=== PATIENT | female | born 1950 | race Caucasian/White ===

== ENCOUNTER → 2017-06-25 | Day surgery (SDC) | payer MEDICARE ==
[~2017-06-25] VITALS: Ht 157.5 cm; Wt 57.2 kg
[~2017-06-25] MED LIST: ACETAMINOPHEN 1000 MG/100 ML 100 ML IV ONE; ACETAMINOPHEN 500 MG CPLT PO PRN; ASPI81CH6 CHEW; ATOR10TA15 PO; ATROPINE SULFATE 1% OPHT SOLN 2 ML BTL ONE; CHLORHEXIDINE GLUCONATE 2 % 1 PACK (2 CLOTHS) TOPICAL PRN; CITA10TA4 PO; DEXAMETHASONE SOD PHOS 4 MG/ML VIAL IV ONE; DEXAMETHASONE SOD PHOS 4 MG/ML VIAL ONE; DEXTROSE 50% IN WATER 50 ML SYRINGE ONE; DO NOT ADM ANY ANTICOAGULANT DRUGS PRN; EPINEPHrine HCL (1:1000) 1 MG/ML VIAL ONE; GABA400C5 PO; GLYCOPYRROLATE 1 MG/5 ML SYRINGE IV PUSH ONE; LACTATED RINGER'S 1000 ML IV PRN; LANTUS2P SQ; LEVO137T2 PO; LIDOCAINE HCL 1% PF 5 ML SYRINGE OTHER ONE; LISI10TA3 PO; MELO7.5T27 PO; METOPROLOL TARTRATE 25 MG TAB PO PRN; MIDAZOLAM HCL 2 MG/2 ML VIAL ONE; NOVO7030P2 SQ; ONDANSETRON HCL 4 MG/2 ML VIAL IV ONE; PHENYLEPH/NS 1000 MCG/10 ML SYR IV ONE; POVIDONE IODINE 5% (ANTISEPSIS KIT) 4 APPLICATIONS EACH NARE PRN; PROPOFOL 200 MG/20 ML AMP IV ONE; SODIUM CHLORID 0.9% 500 ML IV PRN; STERILE WATER FOR INJECTION 20 ML VIAL ONE; TOBRAMYCIN/DEXAMETHASONE OPTH OINT 3.5 GM TUBE ONE; TRAM50TA PO; TRIAMCINOLONE ACETONIDE/PF 40 MG/ML OPTH VIAL ONE; ceFAZolin INJ 1,000 MG VIAL ONE; oxyCODONE/ACETAMINOPHEN 5 MG/325 MG TAB PO PRN
[2017-06-25 07:41] LABS: AUTOMATED NEUTROPHIL # 2.4 TH/MM3 (1.8-7.7); BASOPHIL % 0.3 % (0.0-2.0); EOSINOPHIL # 0.2 TH/MM3 (0-0.4); EOSINOPHIL % 3.9 % (0.0-4.0); HEMATOCRIT 33.1 % (35.0-46.0); LYMPH % 32.4 % (9.0-44.0); LYMPHOCYTE # 1.5 TH/MM3 (1.0-4.8); MEAN CELL VOLUME 93.1 FL (80.0-100.0); MEAN CORPUSCULAR HGB CONC 33.3 % (32.0-36.0); MEAN PLATELET VOLUME 8.8 FL (7.0-11.0); MONO % 10.9 % (0.0-8.0); MONOCYTE # 0.5 TH/MM3 (0-0.9); NEUT % 52.5 % (16.0-70.0); PLATELET COUNT 271 TH/MM3 (150-450); RED BLOOD COUNT 3.56 MIL/MM3 (4.00-5.30); RED CELL DISTRIBUTION WIDTH 14.6 % (11.6-17.2); WHITE BLOOD COUNT 4.6 TH/MM3 (4.0-11.0)
[2017-06-25] MEDS: ATROPINE SULFATE 1% OPHT SOLN 5 ML BTL EACH EYE SCH ×3 (07:50→08:20)
[2017-06-25] MEDS: TROPICAMIDE 1% OPHT SOLN 15 ML BTL EACH EYE SCH ×3 (07:50→08:20)
[2017-06-25] MEDS: CYCLOPENTOLATE HCL 1% OPHT SOLN 2 ML BTL EACH EYE SCH ×3 (07:50→08:20)
[2017-06-25] MEDS: PHENYLEPHRINE HCL 2.5% OPTH SOLN 2 ML BTL EACH EYE SCH ×3 (07:50→08:20)
[2017-06-25 08:13] LABS: CALCIUM 9.5 MG/DL (8.5-10.1); CREATININE 0.81 MG/DL (0.50-1.00)
--- NOTE | 2017-06-25 11:09 | MP ---
cc: Tran Salinas MD DATE OF OPERATION: 06/25/2017 DATE OF SURGERY: 06/25/2017. PREOPERATIVE DIAGNOSES: 1. Severe proliferative diabetic retinopathy, both eyes. 2. Vitreous hemorrhage, left eye. POSTOPERATIVE DIAGNOSES: 1. Severe proliferative diabetic retinopathy, both eyes. 2. Vitreous hemorrhage, left eye. PROCEDURE OPERATIONS: 1. Trans pars plana vitrectomy with membranectomy, endolaser panretinal photocoagulation, supplemented by laser indirect photocoagulation and air-fluid exchange, left eye. 2. Laser indirect panretinal photocoagulation, right eye. SURGEON: Tran Salinas MD ANESTHESIA: General endotracheal anesthesia. INDICATIONS: Ms. Torrez is a 66-year-old diabetic who presented with proliferative diabetic retinopathy in both eyes and vitreous hemorrhage obscuring vision in the left eye. She wished to proceed with vitrectomy to remove the vitreous hemorrhage and treat the underlying proliferative retinopathy in her left eye and opted to have her right eye treated with laser while she was under anesthesia. The risks and benefits of surgery were discussed with the patient including the possible formation of cataract in the left eye where the vitrectomy was to be done. Informed consent was obtained. No guarantee was made as to visual outcome. She was brought to [facility] operating room #1 and placed on the operating table. Appropriate anesthesia monitoring devices were applied and she was placed under general anesthesia using a laryngeal mask. The left eye was identified as the operative site for the vitrectomy and prepped and draped in the usual sterile fashion. A lid speculum was placed. The microscope was brought around and adjusted. At this point, an appropriate timeout was called with the surgical team agreeing to the surgical site, and planned procedures. Using the Diaz 23-gauge vitrectomy system, the trocar cannulas were placed, 4 mm posterior to the limbus after first displacing the conjunctiva and with a bevelled entrance. The first one was placed at approximately 3 o'clock and verified to be in the posterior chamber. An infusion cannula was affixed to it and turned on. Two additional trocar cannulas were placed at approximately 10 and 2 o'clock in the similar fashion. A small amount of Kenalog was introduced into the posterior chamber through the cannula and then using the flat contact lens a core vitrectomy was carried out using the endoilluminator light pipe and vitrectomy cutter. There was an epicenter on the optic nerve as well as one outside of the inferotemporal arcade. The vitreous was trimmed to these and, in the case of the inferior temporal epicenter, it was raised up so all traction was removed up from it with the vitrectomy cutter. Once the core vitrectomy and that had been done, using suction with the vitrectomy handpiece, the posterior hyaloid was elevated over the posterior pole and into the mid-periphery. Next, the flat contact lens was exchanged for the BIOM wide angle viewing system and the peripheral vitrectomy was done at some point using scleral depression. Once the vitrectomy was completed, the endolaser probe was introduced in the eye and a panretinal photocoagulation was performed using a power of 200 milliwatts 0.1 second duration. The more peripheral retina was treated with the indirect ophthalmoscope laser delivery system with a power of 350 milliwatts, 0.15 seconds, and the total lasers placed using both methods was 2079. While using the indirect laser delivery system, the peripheral fundus was checked and no retinal breaks were found. Next, using the BIOM wide angle viewing system the eye was entered with the endoilluminator light pipe and soft-tip linear extrusion needle and a partial air-fluid exchange was performed. The the cannulas were then removed, one by one with tamponade of the site with a cotton swab and diathermy to the overlying conjunctival wound, leaving the left eye with good pressure and no visible air leaks. Atropine drops were placed on the cornea, followed by subconjunctival injections of Ancef 125 mg in 0.5 mL and Decadron 2 mg in 0.5 mL The patient was undraped. TobraDex ointment was placed on the left cornea and then the left eye was patched and shielded. Next, the lid speculum was placed in the right eye and using the laser indirect delivery system with a power of 350 milliwatts and 0.15 second exposure, 940 laser spots were scattered around the periphery. The procedure was then terminated. The patient had the laryngeal mask removed in the room and was returned to Recovery in good condition, laying on her right side when awake. When awake she will be asked to start alternating right side down with face down. MD BRYSON Boucher/SB , 10:39 AM , 11:08 AM
[2017-06-25 12:20] VITALS: BP 120/63; PULSE 80; RESP 20; TEMP 98; O2SAT 98
--- NOTE | 2017-06-25 18:46 | EKG ---
Date Performed: 06/25/2017 Time Performed: 06:48:32 PTAGE: 66 years EKG: Sinus rhythm SEPTAL MYOCARDIAL INFARCTION , PROBABLY OLD ABNORMAL ECG NO PREVIOUS TRACING DOCTOR: Rene Ulrich Interpretating Date/Time 06/25/2017 18:42:19
== END | disposition home or self-care (01) ==
LOC: HSDC 06:24
PROVIDERS: ATTEND Ophthalmology
DX: E11.3593 Type 2 diabetes mellitus with proliferative diabetic retinopathy without macular edema, bilateral (principal); H43.12 Vitreous hemorrhage, left eye; I10 Essential (primary) hypertension; E78.5 Hyperlipidemia, unspecified; Z79.4 Long term (current) use of insulin
CPT/HCPCS: 00145; 67040; 67228; 80048; 82948; 85025; 93005; J0131; J0171; J0690; J1100; J2250; J2370; J2405; J3010; J3300; J7120